=== PATIENT | male | born 1950 ===

== ENCOUNTER 2016-09-09 16:25 | Observation (INO) | payer SELFPAY ==
--- NOTE | 2016-09-09 17:05 | ED PDOC ---
HPI: Chest Pain Time Seen by Provider: 09/09/16 16:54 Chief Complaint (Nursing): Chest Pain Chief Complaint (Provider): Chest pain History Per: Patient History/Exam Limitations: no limitations Onset/Duration Of Symptoms: Days (5) Current Symptoms Are (Timing): Still Present Additional Complaint(s): Pt. with chest pain sternal. Also dizziness and weakness all over. No numbness , tingles, dyspnea, headaches, neck pain, abd pain, back pain, leg pain. No nausea, vomit, diarrhea. BP has been elevated for 5 days as well, despite taking his med. Past Medical History Reviewed: Nursing Documentation, Vital Signs Vital Signs: Last Vital Signs Temp 97.3 F L 09/09/16 16:33 Pulse 89 09/09/16 16:48 Resp 18 09/09/16 16:33 BP 184/111 H 09/09/16 16:48 Pulse Ox 98 09/09/16 17:06 - Medical History PMH: HTN - Surgical History Surgical History: No Surg Hx - Family History Family History: States: Unknown Family Hx - Living Arrangements Living Arrangements: With Family - Social History Current smoker - smoking cessation education provided: No Alcohol: None Drugs: Denies - Allergies Allergies/Adverse Reactions: Allergies Allergy/AdvReac Type Severity Reaction Status Date / Time No Known Allergies Allergy Verified 09/09/16 16:32 KHADAR Risk Score for UA/NSTEMI - KHADAR Risk Score Age > 64: YES 3 or more CAD Risk Factors: NO Known CAD (Stenosis greater than 50%): NO Aspirin use in past 7 days: NO Severe Angina: NO EKG ST changes greater than 0.5mm: NO Positive Cardiac Marker: NO KHADAR Score: 1 Risk %: 5% Review of Systems ROS Statement: Except As Marked, All Systems Reviewed And Found Negative Constitutional: Positive for: Weakness Cardiovascular: Positive for: Chest Pain Respiratory: Negative for: Shortness of Breath Neurological: Positive for: Weakness, Dizziness Physical Exam - Reviewed Nursing Documentation Reviewed: Yes Vital Signs Reviewed: Yes - Physical Exam Appears: Positive for: Non-toxic, No Acute Distress Head Exam: Positive for: ATRAUMATIC, NORMAL INSPECTION, NORMOCEPHALIC Skin: Positive for: Normal Color, Warm, DRY Eye Exam: Positive for: EOMI, Normal appearance, PERRL ENT: Positive for: Normal ENT Inspection Neck: Positive for: Normal, Painless ROM, Supple Cardiovascular/Chest: Positive for: Regular Rate, Rhythm Respiratory: Positive for: CNT, Normal Breath Sounds Gastrointestinal/Abdominal: Positive for: Normal Exam, Bowel Sounds, Soft. Negative for: Tenderness Back: Positive for: Normal Inspection. Negative for: L CVA Tenderness, R CVA Tenderness Extremity: Positive for: Normal ROM. 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 Negative for: Motor/Sensory Deficits, Aphasia, Facial Droop - Laboratory Results Result Diagrams: 09/09/16 17:00 09/09/16 17:00 Interpretation Of Abn Labs: 14.7 wbc - ECG ECG: Positive for: Interpreted By Me, Viewed By Me ECG Rhythm: Positive for: Normal QRS, Normal ST Segment, Sinus Rhythm O2 Sat by Pulse Oximetry: 98 Pulse Ox Interpretation: Normal - Radiology X-Ray: Interpreted by Me, Viewed By Me X-Ray Interpretation: No Acute Disease - CT Scan/US head Other Rad Studies (CT/US): Read By Radiologist Other Rad Interpretation: no acute - Progress ED Course And Treament: 1935: Pt. stable. AAOx3. Pain free. Spoke with Dr. Martinez. Will admit tele. Disposition - Clinical Impression Clinical Impression: Chest pain, Dizziness, Hypertension - Patient ED Disposition Is Patient to be Admitted: Yes Counseled Patient/Family Regarding: Studies Performed, Diagnosis - Disposition Disposition Time: 19:36 Condition: FAIR - Pt Status Changed To: Hospital Disposition Of: Observation - POA Present On Arrival: None Core Measure Indicators: Chest Pain
[2016-09-09 17:22] LABS: BASO # 0.1 K/uL (0.0-0.2); BASO % 0.6 % (0.0-2.0); EOS # 0.1 K/uL (0.0-0.7); EOS % 0.4 % (0.0-4.0); HEMATOCRIT 43.6 % (35.0-51.0); LYMPH # 2.7 K/uL (1.0-4.3); LYMPH % 18.1 % (20.0-40.0); MEAN CELL VOLUME 79.1 fl (80.0-94.0); MEAN CORPUSCULAR HEMOGLOBIN 26.2 pg (27.0-31.0); MEAN CORPUSCULAR HGB CONC 33.1 g/dL (33.0-37.0); MEAN PLATELET VOLUME 7.6 fl (7.2-11.7); MONO # 1.1 K/uL (0.0-0.8); MONO % 7.4 % (0.0-10.0); NEUT # 10.8 K/uL (1.8-7.0); NEUT % 73.5 % (50.0-75.0); RED CELL DISTRIBUTION WIDTH 13.5 % (11.5-14.5); WHITE BLOOD COUNT 14.7 K/uL (4.8-10.8)
[2016-09-09 17:34] LABS: ALB/GLOB RATIO 1.4 (1.0-2.1); ALKALINE PHOSPHATASE 90 U/L (38-126); ALT/SGPT 64 U/L (21-72); AST/SGOT 40 U/L (17-59); BILIRUBIN,TOTAL 0.3 mg/dl (0.2-1.3); BLOOD UREA NITROGEN 19 mg/dl (9-20); CALCIUM 9.5 mg/dL (8.4-10.2); CARBON DIOXIDE 26 mmol/L (22-30); CHLORIDE 97 mmol/L (98-107); GFR AFRICAN-AMERICAN > 60; GLUCOSE,RANDOM 157 mg/dL (75-110); SODIUM 137 mmol/l (132-148); TOTAL PROTEIN 8.1 G/DL (6.3-8.2)
[2016-09-09 17:37] LABS: PARTIAL THROMBOPLASTIN TIME 32.8 Seconds (25.6-37.1)
--- NOTE | 2016-09-09 18:33 | CT ---
PROCEDURE: CT HEAD WITHOUT CONTRAST. HISTORY: headache COMPARISON: None available. TECHNIQUE: Axial computed tomography images were obtained through the head/brain without intravenous contrast. Radiation dose: Total exam DLP = 824.29 mGy-cm. This CT exam was performed using one or more of the following dose reduction techniques: Automated exposure control, adjustment of the mA and/or kV according to patient size, and/or use of iterative reconstruction technique. FINDINGS: HEMORRHAGE: No intracranial hemorrhage. BRAIN: No mass effect or edema. No atrophy or chronic microvascular ischemic changes. VENTRICLES: Unremarkable. No hydrocephalus. CALVARIUM: Unremarkable. PARANASAL SINUSES: Unremarkable as visualized. No significant inflammatory changes. MASTOID AIR CELLS: Partial opacification of the mastoids right more than left suspicious for mastoiditis. Small amount of diffusion also seen at the middle ears right more than left OTHER FINDINGS: None. IMPRESSION: No evidence of acute intracranial hemorrhage intracranial collection mass effect or midline shift. Bilateral diffusion in the mastoids and middle ears right more than left. Correlate clinically for otomastoiditis.
[2016-09-09] MEDS: Nitroglycerin 2% Ointment Foilpak UD TOP SCH (19:53)
--- NOTE | 2016-09-09 19:55 | CP.PCM.HP ---
History of Present Illness - History of Present Illness History of Present Illness: CP: CP, dizziness History via adult family members in [place]. HPI: This is a 66 y/o male with HTN who comes in with SSCP. Patient states the CP was accompanied by some SOB, dizziness, and generalized weakness. Denies palpitations, denies diaphoresis. Denies focal weakness. Denies numbness or tingling. Denies n/v. Of note, patient's BP as been up for the past 5 days in spite of taking his medications. Nothing makes pain better or worse. Patient has never had any cardiac workup in the past. ROS: 14 systems reviewed, negative other than HPI MHx: HTN SHx: None Allergies: NKDA Medications: Per med rec Family Hx: Patient unable to provide any relevant family Hx Social Hx: Lives with family; no tobacco, no EtOH Surrogate: [id number], contact info in chart Present on Admission - Present on Admission Any Indicators Present on Admission: No Past Patient History - Past Social History Alcohol: None Drugs: Denies - CARDIAC Hx Hypertension: Yes - PSYCHIATRIC Hx Substance Use: No Meds Allergies/Adverse Reactions: Allergies Allergy/AdvReac Type Severity Reaction Status Date / Time No Known Allergies Allergy Verified 09/09/16 16:32 Physical Exam - Constitutional Appears: No Acute Distress - Head Exam Head Exam: ATRAUMATIC, NORMOCEPHALIC - Eye Exam Eye Exam: EOMI, PERRL - ENT Exam ENT Exam: Mucous Membranes Moist - Neck Exam Neck exam: Positive for: Full Rom - Respiratory Exam Respiratory Exam: Clear to Auscultation Bilateral, NORMAL BREATHING PATTERN - Cardiovascular Exam Cardiovascular Exam: REGULAR RHYTHM, +S1, +S2 - GI/Abdominal Exam GI & Abdominal Exam: Normal Bowel Sounds, Soft - Extremities Exam Extremities exam: Positive for: full ROM, normal inspection - Neurological Exam Neurological exam: Alert, CN II-XII Intact, Oriented x3 - Psychiatric Exam Psychiatric exam: Normal Affect, Normal Mood - Skin Skin Exam: Dry, Warm Results - Vital Signs Recent Vital Signs: Last Vital Signs Temp 97.3 F L 09/09/16 16:33 Pulse 86 09/09/16 18:56 Resp 16 09/09/16 18:56 BP 162/93 H 09/09/16 18:56 Pulse Ox 98 09/09/16 19:36 - Labs Result Diagrams: 09/09/16 17:00 09/09/16 17:00 Labs: Laboratory Results - last 24 hr 09/09/16 09/09/16 09/09/16 17:00 17:00 17:00 WBC 14.7 H RBC 5.51 Hgb 14.4 Hct 43.6 MCV 79.1 L MCH 26.2 L MCHC 33.1 RDW 13.5 Plt Count 427 H MPV 7.6 Neut % (Auto) 73.5 Lymph % (Auto) 18.1 L Sunflower % (Auto) 7.4 Eos % (Auto) 0.4 Baso % (Auto) 0.6 Neut # 10.8 H Lymph # 2.7 Sunflower # 1.1 H Eos # 0.1 Baso # 0.1 PT 11.4 INR 1.0 APTT 32.8 Sodium 137 Potassium 4.0 Chloride 97 L Carbon Dioxide 26 Anion Gap 18 BUN 19 Creatinine 1.2 Est GFR ( Amer) > 60 Est GFR (Non-Af Amer) > 60 Random Glucose 157 H Calcium 9.5 Total Bilirubin 0.3 AST 40 ALT 64 Alkaline Phosphatase 90 Troponin I < 0.0120 Total Protein 8.1 Albumin 4.8 Globulin 3.4 Albumin/Globulin Ratio 1.4 - EKG Data EKG Interpreted by: Myself EKG shows normal: Sinus rhythm Rate: Normal - EKG Data EKG comments: No acute fidnings - Imaging and Cardiology CT scan - head Status: Report reviewed by me (Per report no acute bleeding, mass effect, midline shift) Chest x-ray Status: Image reviewed by me (No notable findings) Assessment & Plan (1) Chest pain Assessment and Plan: 66 y/o male with HTN presenting with CP and dizziness in setting of elevated BP. 1) Chest pain, dizziness --r/o cardiac etiology -Admit tele obs -serial troponins -Lipids, a1c in AM -AM EKG -Echo in AM -ASA 325 mg po daily -Nitropaste 1 inch for CP and elevated BP -Continue home medications for HTN once obtained -If symptoms appear concerning more for CVA, will consider MRI and carotid dopplers, currently appears more c/w cardiac etiology 2) HTN -- as above 3) DVT PPx -- SQ Lovenox Status: Acute (2) Dizziness Status: Acute (3) Hypertension Status: Acute (4) DVT prophylaxis Status: Acute
[2016-09-09 20:49] LABS: RBC URINE 1 /hpf (0-3); URINE BILIRUBIN NEGATIVE (NEGATIVE); URINE BLOOD NEGATIVE (NEGATIVE); URINE COLOR YELLOW (YELLOW); URINE GLUCOSE (UA) NEG (Normal); URINE KETONE NEGATIVE (NEGATIVE); URINE LEUKOCYTE ESTERASE NEG Leu/uL (Negative); URINE PROTEIN NEGATIVE (NEGATIVE); URINE URIC ACID CRYSTALS RARE /hpf (<OCC); URINE UROBILINOGEN 0.2-1.0 mg/dL (0.2-1.0); WBC URINE < 1 /hpf (0-5)
[2016-09-10 05:01] VITALS: O2SAT 96
[2016-09-10] MEDS ORDERED: Pneumococcal 23-Valent Vaccine IM ONE (06:00)
[2016-09-10 08:04] LABS: HEMATOCRIT 44.3 % (35.0-51.0); MEAN CELL VOLUME 80.6 fl (80.0-94.0); MEAN CORPUSCULAR HEMOGLOBIN 25.4 pg (27.0-31.0); MEAN CORPUSCULAR HGB CONC 31.5 g/dL (33.0-37.0); RED CELL DISTRIBUTION WIDTH 13.6 % (11.5-14.5); WHITE BLOOD COUNT 13.3 K/uL (4.8-10.8)
[2016-09-10 08:20] LABS: BLOOD UREA NITROGEN 20 mg/dl (9-20); CALCIUM 9.1 mg/dL (8.4-10.2); CARBON DIOXIDE 29 mmol/L (22-30); CHLORIDE 96 mmol/L (98-107); CHOLESTEROL 160 mg/dL (0-199); GFR AFRICAN-AMERICAN > 60; GLUCOSE,RANDOM 91 mg/dL (75-110); POTASSIUM 3.8 MMOL/L (3.6-5.0); SODIUM 138 mmol/l (132-148)
[2016-09-10 08:24] VITALS: BP 147/96; PULSE 70
[2016-09-10] MEDS: Nitroglycerin 2% Ointment Foilpak UD TOP SCH (08:24)
[2016-09-10 08:33] VITALS: RESP 20; TEMP 97.3
[2016-09-10] MEDS ORDERED: Enoxaparin 40 mg Syringe SC SCH (09:00)
--- NOTE | 2016-09-10 13:27 | CARD ---
APPROVED REPORT EXAM: Two-dimensional and M-mode echocardiogram with Doppler and color Doppler. Other Information Quality : GoodRhythm : NSR INDICATION Dizziness and Vertigo Chest Pain 2D DIMENSIONS IVSd1.88 (0.7-1.1cm)LVDd3.95 (3.9-5.9cm) LVOT Diameter2.37 (1.8-2.4cm)PWd1.13 (0.7-1.1cm) IVSs1.82 (0.8-1.2cm)LVDs3.20 (2.5-4.0cm) FS (%) 19.0 %PWs1.54 (0.8-1.2cm) LVEF (%)40.0 (>50%) M-Mode DIMENSIONS Left Atrium (MM)2.97 (2.5-4.0cm)IVSd1.82 (0.7-1.1cm) Aortic Root4.32 (2.2-3.7cm)LVDd3.85 (4.0-5.6cm) Aortic Cusp Exc.2.47 (1.5-2.0cm)PWd1.12 (0.7-1.1cm) IVSs2.24 cmFS (%) 34 % LVDs2.56 (2.0-3.8cm)PWs1.26 cm Mitral Valve E/A ratio0.0 TDI E/Lateral E'0.0E/Medial E'0.0 Pulmonary Valve PV Peak Lwvywtsw06.8cm/s LEFT VENTRICLE The left ventricle cavity is small. There is moderate to severe concentric left ventricular hypertrophy. The systolic function is moderately impaired. There is global hypokinesis of the left ventricle. Transmitral Doppler flow pattern is Grade I-abnormal relaxation pattern. RIGHT VENTRICLE The right ventricle is normal size. There is normal right ventricular wall thickness. The right ventricular systolic function is normal. ATRIA The left atrium size is normal. The right atrium size is normal. AORTIC VALVE The aortic valve is mildly thickened. There is trace aortic regurgitation. There is no aortic valvular stenosis. MITRAL VALVE The mitral valve is mildly thickened. There is no mitral valve stenosis. There is no mitral valve regurgitation noted. TRICUSPID VALVE The tricuspid valve is normal in structure and function. There is no tricuspid valve regurgitation noted. PULMONIC VALVE The pulmonary valve is normal in structure There is trace pulmonic valvular regurgitation. GREAT VESSELS The aortic root is mildly to moderately enlarged. The IVC is normal in size and collapses >50% with inspiration. PERICARDIAL EFFUSION There is a trace loculated anterior pericardial effusion. <Conclusion> The left ventricle cavity is small. There is moderate to severe concentric left ventricular hypertrophy. The systolic function is moderately impaired. There is global hypokinesis of the left ventricle. Transmitral Doppler flow pattern is Grade I-abnormal relaxation pattern. The aortic root is mildly to moderately enlarged.
--- NOTE | 2016-09-10 13:55 | CARD ---
APPROVED REPORT EKG Measurement Heart [id number] <Conclusion> Normal sinus rhythm Possible Left atrial enlargement Left ventricular hypertrophy Nonspecific T wave abnormality Abnormal ECG
--- NOTE | 2016-09-10 14:27 | RAD ---
HISTORY: chest pain COMPARISON: No prior. FINDINGS: LUNGS: No active pulmonary disease. Slight elevation right hemidiaphragm possibly due to eventration. PLEURA: No significant pleural effusion identified, no pneumothorax apparent. CARDIOVASCULAR: Normal. OSSEOUS STRUCTURES: No significant abnormalities. VISUALIZED UPPER ABDOMEN: Normal. OTHER FINDINGS: None. IMPRESSION: No acute cardiopulmonary disease.
--- NOTE | 2016-09-10 17:13 | CP.PCM.DIS ---
Provider - Provider Date of Admission: 09/09/16 19:00 Attending physician: Darien Martinez MD Primary care physician: None Time Spent in preparation of Discharge (in minutes): 20 Hospital Course - Lab Results Lab Results: Most Recent Lab Values WBC 13.3 K/uL (4.8-10.8) H 09/10/16 06:00 RBC 5.50 Mil/uL (4.40-5.90) 09/10/16 06:00 Hgb 14.0 g/dL (12.0-18.0) 09/10/16 06:00 Hct 44.3 % (35.0-51.0) 09/10/16 06:00 MCV 80.6 fl (80.0-94.0) 09/10/16 06:00 MCH 25.4 pg (27.0-31.0) L 09/10/16 06:00 MCHC 31.5 g/dL (33.0-37.0) L 09/10/16 06:00 RDW 13.6 % (11.5-14.5) 09/10/16 06:00 Plt Count 412 K/uL (130-400) H 09/10/16 06:00 MPV 7.6 fl (7.2-11.7) 09/09/16 17:00 Neut % (Auto) 73.5 % (50.0-75.0) 09/09/16 17:00 Lymph % (Auto) 18.1 % (20.0-40.0) L 09/09/16 17:00 [place] % (Auto) 7.4 % (0.0-10.0) 09/09/16 17:00 Eos % (Auto) 0.4 % (0.0-4.0) 09/09/16 17:00 Baso % (Auto) 0.6 % (0.0-2.0) 09/09/16 17:00 Neut # 10.8 K/uL (1.8-7.0) H 09/09/16 17:00 Lymph # 2.7 K/uL (1.0-4.3) 09/09/16 17:00 [place] # 1.1 K/uL (0.0-0.8) H 09/09/16 17:00 Eos # 0.1 K/uL (0.0-0.7) 09/09/16 17:00 Baso # 0.1 K/uL (0.0-0.2) 09/09/16 17:00 PT 11.4 Seconds (9.8-13.1) 09/09/16 17:00 INR 1.0 (0.9-1.2) 09/09/16 17:00 APTT 32.8 Seconds (25.6-37.1) 09/09/16 17:00 Sodium 138 mmol/l (132-148) 09/10/16 06:00 Potassium 3.8 MMOL/L (3.6-5.0) 09/10/16 06:00 Chloride 96 mmol/L (98-107) L 09/10/16 06:00 Carbon Dioxide 29 mmol/L (22-30) 09/10/16 06:00 Anion Gap 17 (10-20) 09/10/16 06:00 BUN 20 mg/dl (9-20) 09/10/16 06:00 Creatinine 1.3 mg/dL (0.8-1.5) 09/10/16 06:00 Est GFR ( Amer) > 60 09/10/16 06:00 Est GFR (Non-Af Amer) 55 09/10/16 06:00 Random Glucose 91 mg/dL (75-110) 09/10/16 06:00 Calcium 9.1 mg/dL (8.4-10.2) 09/10/16 06:00 Total Bilirubin 0.3 mg/dl (0.2-1.3) 09/09/16 17:00 AST 40 U/L (17-59) 09/09/16 17:00 ALT 64 U/L (21-72) 09/09/16 17:00 Alkaline Phosphatase 90 U/L (38-126) 09/09/16 17:00 Troponin I < 0.0120 ng/mL (0.00-0.120) 09/10/16 08:00 Total Protein 8.1 G/DL (6.3-8.2) 09/09/16 17:00 Albumin 4.8 g/dL (3.5-5.0) 09/09/16 17:00 Globulin 3.4 gm/dL (2.2-3.9) 09/09/16 17:00 Albumin/Globulin Ratio 1.4 (1.0-2.1) 09/09/16 17:00 Triglycerides 153 mg/DL (0-149) H 09/10/16 06:00 Cholesterol 160 mg/dL (0-199) 09/10/16 06:00 LDL Cholesterol Direct 111 mg/dL (0-129) 09/10/16 06:00 HDL Cholesterol 31 MG/DL (30-70) 09/10/16 06:00 Urine Color Yellow (YELLOW) 09/09/16 20:15 Urine Clarity Clear (Clear) 09/09/16 20:15 Urine pH 7.0 (5.0-8.0) 09/09/16 20:15 Ur Specific [place] 1.013 (1.003-1.030) 09/09/16 20:15 Urine Protein Negative mg/dL (NEGATIVE) 09/09/16 20:15 Urine Glucose (UA) Neg mg/dL (Normal) 09/09/16 20:15 Urine Ketones Negative mg/dL (NEGATIVE) 09/09/16 20:15 Urine Blood Negative (NEGATIVE) 09/09/16 20:15 Urine Nitrate Negative (NEGATIVE) 09/09/16 20:15 Urine Bilirubin Negative (NEGATIVE) 09/09/16 20:15 Urine Urobilinogen 0.2-1.0 mg/dL (0.2-1.0) 09/09/16 20:15 Ur Leukocyte Esterase Neg Delphine/uL (Negative) 09/09/16 20:15 Urine RBC (Auto) 1 /hpf (0-3) 09/09/16 20:15 Urine Microscopic WBC < 1 /hpf (0-5) 09/09/16 20:15 Uric Acid Crystals Rare /hpf (<OCC) 09/09/16 20:15 - Hospital Course Hospital Course: 66 y/o male with PMH HTN not compklinat with his medications and diet presented with chest pain . Patient states the CP was accompanied by some SOB, dizziness, and generalized weakness. Denies palpitations, denies diaphoresis. Denies focal weakness. Denies numbness or tingling. Denies n/v. Of note, patient 's BP as been up for the past 5 days in spite of taking his medications. Nothing makes pain better or worse. Patient has never had any cardiac workup in the past. His EKG showed no ST - T wave changes and troponin was negative,. He was placed under observation in telemetry to rule out ACS. Troponins were xcycled x3 were negative Echo showed left ventricular hypertrophy with global hypokinesis and moderately decreased EF Patient remained hemodynamically stable, chest pain free Counselled on compliance with medications, BP control, diet and exercise Counselled on routine regular follow up with a PMD . He will need to follow upw [facility] since he has no insurance ACS ruled out Will prescribe Lisinopril 10 mg PO dailyu and HCTZ 12.5 mg po QD for hypertension Will discharge patient home with family in stable conditions. All questions answerted and patient and family express understanding and agree with discharge plan Dx ; Non cardiac chest pain ACS ruled out Uncontrolled Hypertension Discharge Exam - Head Exam Head Exam: ATRAUMATIC, NORMOCEPHALIC - Eye Exam Eye Exam: EOMI, Normal appearance, PERRL Pupil Exam: NORMAL ACCOMODATION - ENT Exam ENT Exam: Mucous Membranes Moist, Normal Exam - Neck Exam Neck exam: Full Rom, Normal Inspection - Respiratory Exam Respiratory Exam: Clear to PA & Lateral, NORMAL BREATHING PATTERN. absent: Rales, Rhonchi, Wheezes - Cardiovascular Exam Cardiovascular Exam: REGULAR RHYTHM, RRR, +S1, +S2. absent: JVD - GI/Abdominal Exam GI & Abdominal Exam: Normal Bowel Sounds, Soft. absent: Distended, Guarding, Rebound, Tenderness - Rectal Exam Rectal Exam: Deferred - Extremities Exam Extremities exam: normal capillary refill, normal inspection, pedal pulses present - Back Exam Back exam: NORMAL INSPECTION - Neurological Exam Neurological exam: Alert, Oriented x3, Reflexes Normal - Psychiatric Exam Psychiatric exam: Normal Affect, Normal Mood - Skin Skin Exam: Dry, Intact, Normal Color, Warm Discharge Plan - Discharge Medications Prescriptions: Aspirin 81 mg PO DAILY #30 tab.chew Lisinopril/Hydrochlorothiazide [Lisinopril-Hctz 10-12.5 mg Tab] 1 each PO DAILY #30 tablet - Follow Up Plan Condition: STABLE Disposition: HOME/ ROUTINE Patient education suggested?: Yes Instructions: Chest Pain (DC), Low Fat Diet (DC), Heart Healthy Diet (DC), Noncardiac Chest Pain (DC) Referrals: [facility] [place] [Outside]
--- NOTE | 2016-09-10 22:57 | CARD ---
APPROVED REPORT EKG Measurement Heart [id number] [place] [id number] <Conclusion> Normal sinus rhythm Possible Left atrial enlargement Borderline ECG
== END 2016-09-10 12:30 | disposition home or self-care (01) ==
LOC: H.ER 16:25 → H.ERHOLD 19:00 → H.TEL 21:03
PROVIDERS: ADMIT Internal Medicine; ATTEND Internal Medicine
DX: R07.89 Other chest pain (principal); I10 Essential (primary) hypertension; R42 Dizziness and giddiness; Z23 Encounter for immunization; Z91.14 Patient's other noncompliance with medication regimen; Z79.82 Long term (current) use of aspirin
CPT/HCPCS: 36415; 70450; 71010; 80048; 80053; 80061; 81003; 83036; 84484; 85025; 85027; 85610; 85730; 90732; 93005; 93306; 99285; G0009; G0378; J1650